=== PATIENT | female | born 1995 | race Asian ===

== ENCOUNTER 2023-10-02 20:12 | Emergency (ER) | payer OTHER, SELFPAY ==
--- NOTE | 2023-10-02 20:33 | ED.GENADULT ---
HPI - General Adult General Chief complaint: General Medical Stated complaint: ? food poisoning Related Data Allergies Allergy/AdvReac Type Severity Reaction Status Date / Time No Known Allergies Allergy Verified 10/02/23 20:40 PMFSH Social History Advance Directives: No Advance Directives Information Provided: Yes Physical Exam ED Vital Signs: Vital Signs - 24 hr 10/02/23 20:40 Temperature 98.7 F Pulse Rate 95 Respiratory Rate 18 Blood Pressure 138/86 Pulse Oximetry 98 Oxygen Delivery Method Room Air BMI result Body Mass Index 37.9 Course Course Course Narrative: This is an RME: Additional HPI, ROS, PE not included below will be deferred to primary provider. 28 yo f presents w/ a cc of nothing she thinks her boyfriend was poisened so she needs labs. Plan- jackson Reevaluation(s) Reevaluation #1: patient left Medical Decision Making Lab Data Labs: Lab Results 10/02/23 Range/Units 20:58 Urine Opiates Screen Not Detected (Not Detect) Urine Fentanyl Screen Not Detected (Not Detect) Ur Barbiturates Screen Not Detected (Not Detect) Ur Phencyclidine Scrn Not Detected (Not Detect) Ur Amphetamines Screen Not Detected (Not Detect) U Benzodiazepines Scrn Not Detected (Not Detect) Urine Cocaine Screen Not Detected (Not Detect) U Marijuana (THC) Screen Not Detected (Not Detect) Discharge Plan Discharge Clinical Impression: Eloped from emergency department Patient Disposition: Left W/O Completing Treatment Interventions: LWBS Worksheet Last Done: 10/03/23 02:23 Discharge Date/Time: 10/03/23 02:23
[2023-10-02 20:40] VITALS: BP 163/102; PULSE 80; RESP 16; TEMP 36.7; O2SAT 100; BMI 37.9
[2023-10-02 21:16] LABS: Amphetamine Screen Urine Not Detected (Not Detect); Barbiturates, Urine Not Detected (Not Detect); Benzodiazepines Screen Urine Not Detected (Not Detect); Cannabinoid Screen Urine Not Detected (Not Detect); Cocaine Screen Urine Not Detected (Not Detect); Fentanyl, urine Not Detected (Not Detect); Opiate Screen Urine Not Detected (Not Detect); Phencyclidine Screen Urine Not Detected (Not Detect)
[2023-10-03 02:10] VITALS: BP 147/106; PULSE 96; RESP 18; O2SAT 98
--- NOTE | 2023-10-03 02:19 | PC.NURSE ---
Pt states wait is too long and wants to go home.
== END 2023-10-03 02:23 | disposition left against medical advice (07) ==
PROVIDERS: Physician Assistant; Emergency Provider Emergency Medicine
DX: R11.2 Nausea with vomiting, unspecified (principal); Z79.899 Other long term (current) drug therapy
CPT/HCPCS: 80307; 99282; 99284

== ENCOUNTER 2023-12-16 00:12 | Emergency (ER) | payer OTHER, SELFPAY ==
[2023-12-16 00:14] VITALS: BP 152/108; PULSE 89; RESP 16; TEMP 36.7; O2SAT 96; BMI 30.7
[2023-12-16 00:18] VITALS: BP 142/101
--- NOTE | 2023-12-16 01:43 | PC.NURSE ---
this rn assumed care of pt. pt reporting onset of left eye pain starting on the 29. pt [facility]ment for the eye and reports there has not been relief. pt reports swelling of the left eye has increased. pt denies any changes in vision.
--- NOTE | 2023-12-16 03:06 | ED.EYEPROB ---
HPI - Eye Problem General Chief complaint: Eye Problems Stated complaint: eye problems Time Seen by Provider: 12/16/23 01:23 Source: patient Mode of arrival: ambulatory History of Present Illness HPI Narrative: 28-year-old female who presents with left eye irritation, redness, tearing and pain/burning at the left lower lid. Seen at urgent care a few days ago 12/13 given antibiotic eyedrops but she states she has gotten no relief and states that her symptoms feel as though they have worsened. She denies any visual changes. Related Data Allergies Allergy/AdvReac Type Severity Reaction Status Date / Time No Known Allergies Allergy Verified 12/16/23 00:17 Review of Systems Review of Systems: Pertinent positives and negatives as stated in HPI [facility] Past Medical History Source: nursing notes reviewed Social History Social History Smoked in Last 30 Days: Yes Use of substances other than those prescribed or required for medical reasons: No Advance Directives: No Advance Directives Information Provided: No Patient : No Physical Exam Vital Signs: Vital Signs: Last Vital Signs Temp 97.2 F 12/16/23 03:18 Pulse 88 12/16/23 03:18 Resp 17 12/16/23 03:18 BP 142/89 H 12/16/23 03:18 Pulse Ox 97 12/16/23 03:18 O2 Del Method Room Air 12/16/23 03:18 BMI result Body Mass Index 30.7 VITAL SIGNS: Reviewed. GENERAL: Well developed, well nourished, in no acute distress. HEAD: Normocephalic/atraumatic EYES: PERRLA, EOMI, redness and swelling noted at the left lateral lower lid, no obvious pustule, no injected conjunctiva, EARS: Ext canals without abnormality, TMs non-bulging and non-erythematous NOSE: Nares patent bilateral OROPHARYNX: no oral lesions noted, posterior pharynx clear NECK: Supple, no adenopathy LUNGS: Normal breath sounds. No adventitious sounds or accessory muscle use. SpO2<97> CARDIOVASCULAR: Regular rate and rhythm without noted murmurs ABDOMEN: Soft, non-tender, non-distended with bowel sounds. MUSCULOSKELETAL: No tenderness, deformities, or effusions noted on gross inspection. EXTREMITIES: No cyanosis, clubbing or edema. SKIN: Inspection of the skin reveals no rashes NEUROLOGIC: Alert and oriented x 4. Strength and sensation to light touch were grossly intact x 4. Medical Decision Making Medical Decision Making MDM Narrative: 28-year-old female with history and clinical presentation that appears to be most consistent with a stye, no evidence to suggest a chalzion, acute angle glaucoma, pinkeye My interpretation is patient has a stye, she was recommended to stop taking the antibiotic drops and instead to use hot moist compresses 2 to 3 times a day and given strict return precautions. Differential Diagnosis Differential Diagnoses: The differential diagnosis associated with the presentation includes Please see the discussion above Admission/Observation Consideration of admission/observation: Escalation of care including admission/observation considered Please see the discussion above Discharge Plan Discharge Clinical Impression: Hordeolum externum left lower eyelid Patient Disposition: Home, Self-Care Instructions: Stye (ED), Warm Compress or Soak (ED) Additional Instructions: 1. I do not think it is necessary to take any antibiotics at this time. 2. Please use warm compresses to your eye, 2 to 3 times a day, avoid all eye makeup. 3. Please follow-up with your primary care doctor in the next 1-2 days for re-evaluation. If you experience any worsening of the swelling or began to experience pain with eye movement please return to the emergency room immediately. Interventions: ED Discharge Assessment Last Done: 12/16/23 03:19 Discharge Date/Time: 12/16/23 03:19
[2023-12-16 03:18] VITALS: BP 142/89; PULSE 88; RESP 17; TEMP 36.2; O2SAT 97
== END 2023-12-16 03:19 | disposition home or self-care (01) ==
PROVIDERS: Emergency Provider Student in an Organized Health Care Education/Training Program
DX: H00.015 Hordeolum externum left lower eyelid (principal)
CPT/HCPCS: 99282; 99284